=== PATIENT | female | born 1960 | race Caucasian/White ===

== ENCOUNTER 2016-12-30 11:44 | Emergency (ER) | payer OTHER ==
[~2016-12-30] VITALS: Ht 149.9 cm; Wt 76.0 kg
[~2016-12-30 11:44] MED LIST: ADVA500A INH; ALBU1.25 NEB; AMIT100T6 PO; ATEN1TAB74 PO; CLON2TAB PO; CYAN1000P IM; DEXI60CA3 PO; ESTR.3 PO; LANO0.2510 PO; LEVO50TA51 PO; MIRT45TA PO; QUET1TAB66 PO; ROPI2 PO; SERT-129 PO; TOPI100T OR; TOPI50TA4 PO
[2016-12-30 11:55] VITALS: BP 129/76; PULSE 112; RESP 22; O2SAT 97
[2016-12-30] MEDS ORDERED: SODIUM CHLOR 0.9% 1000 ML INJ 1,000 ML IV ONE (12:01)
[2016-12-30] MEDS ORDERED: DEXAMETHASONE SOD PHOS 20 MG/5 ML VIAL IV PUSH ONE (12:15)
[2016-12-30] MEDS ORDERED: PROCHLORPERAZINE INJ 10 MG/2 ML VIAL IVP ONE (12:15)
[2016-12-30] MEDS ORDERED: SODIUM CHLORIDE 0.9% FLUSH 5 ML FLUSH IVF PRN (12:15)
[2016-12-30] MEDS ORDERED: diphenhydrAMINE HCL 50 MG/ML VIAL IVP ONE (12:15)
[2016-12-30 12:44] LABS: AUTOMATED NEUTROPHIL # 5.8 TH/MM3 (1.8-7.7); BASOPHIL % 0.4 % (0.0-2.0); EOSINOPHIL # 0.2 TH/MM3 (0-0.4); EOSINOPHIL % 2.3 % (0.0-4.0); HEMATOCRIT 40.8 % (35.0-46.0); LYMPH % 31.7 % (9.0-44.0); LYMPHOCYTE # 3.1 TH/MM3 (1.0-4.8); MEAN CELL VOLUME 88.2 FL (80.0-100.0); MEAN CORPUSCULAR HEMOGLOBIN 29.7 PG (27.0-34.0); MEAN CORPUSCULAR HGB CONC 33.7 % (32.0-36.0); MONO % 7.2 % (0.0-8.0); NEUT % 58.4 % (16.0-70.0); PLATELET COUNT 180 TH/MM3 (150-450); RED BLOOD COUNT 4.63 MIL/MM3 (4.00-5.30); RED CELL DISTRIBUTION WIDTH 18.3 % (11.6-17.2); WHITE BLOOD COUNT 9.9 TH/MM3 (4.0-11.0)
[2016-12-30 12:45] LABS: HEMO FLAGS AUTO DIFF
--- NOTE | 2016-12-30 12:54 | PD ---
HPI Chief Complaint: GI Complaint Time Seen by Provider: 11:50 Travel History International Travel<30 days: No Contact w/Intl Traveler<30days: No Traveled to known affect area: No History of Present Illness HPI This is a 56 year-old woman who presents to the emergency department complaining of migraines. She has a history of migraines. Up until about a month ago she was only getting headaches once a month or less. Over the past month she's had more frequent headaches. She describes a migraines now to 4 times a week. She is a sumatriptan but is been using it regularly. She was on her way to see her doctor today when the headache came on and so she called an ambulance who brought her to the emergency department. She has photophobia, phonophobia, nausea and vomiting along with this. States she hasn't had headaches as bad except when she was first diagnosed with migraines. No other complaints. History Past Medical History Narrative Medical Migraine headaches COPD Anxiety Cervical spine arthritis COPD Hyperlipidemia Thyroid disease PNEUMOCCOCAL Vaccine (Year): 2 Menopausal: Yes : 1 Para: 1 Social History Alcohol Use: No Tobacco Use: No Allergies-Medications (Allergen,Severity, Reaction): Coded Allergies: Iodine (Verified Allergy, Intermediate, blisters, 12/30/16) Codeine (Verified Allergy, Mild, EMESIS, 12/30/16) Keflex (Verified Adverse Reaction, Intermediate, EMESIS, 12/30/16) Caffeine (Verified Adverse Reaction, Mild, HEADACHE, 12/30/16) Cephalosporins (Verified Adverse Reaction, Mild, EMESIS, 12/30/16) Morphine (Verified Adverse Reaction, Mild, ITCHING, 12/30/16) Abilify (Verified Adverse Reaction, Unknown, "TOO MANY SIDE EFFECTS", ) Uncoded Allergies: ASPERTAME (Adverse Reaction, Mild, EMESIS, 11/06/08) Reported Meds & Prescriptions Reported Meds & Active Scripts Active Reported Albuterol Neb (Albuterol Sulfate) Unknown Strength Neb 1 Ampule NEB Q6HR PRN Ventolin Hfa 18 GM Inh (Albuterol Sulfate) 90 Mcg/Act Aer 1-2 Puff INH Q4-6H PRN Symbicort Inh (Budesonide/Formoterol Fumarate) 160-4.5 Mcg/Act Aero 2 Puff INH DAILY Ferrous Sulfate 325 Mg Tab 325 Mg PO DAILY Folic Acid 800 Mcg Cap 800 Mcg PO DAILY Vitamin B-12 (Cyanocobalamin) 5,000 Mcg Tab 5,000 Mcg PO DAILY Vitamin D3 (Cholecalciferol) 5,000 Unit Tab 5,000 Units PO DAILY Vitamin C (Ascorbic Acid) 500 Mg Tab 500 Mg PO DAILY Omeprazole 20 Mg Tab 20 Mg PO BID Klonopin (Clonazepam) 2 Mg Tab 2 Mg PO HS Bentyl (Dicyclomine HCl) 20 Mg Tab 20 Mg PO TID PRN Tenormin (Atenolol) 50 Mg Tab 50 Mg PO DAILY Omeprazole 20 Mg Tab 20 Mg PO Q12HR Amitriptyline (Amitriptyline HCl) 50 Mg Tab 50 Mg PO HS Seroquel (Quetiapine Fumarate) 300 Mg Tab 300 Mg PO TID Requip (Ropinirole HCl) 2 Mg Tab 2 Mg PO HS PRN Topamax (Topiramate) 50 Mg Tab 50 Mg PO BID Cholestyramine 4 Gm/Dose Powd 4 Gm PO BID 1 level scoopful of powder (contains 4 grams of cholestyramine) Budesonide DR (Budesonide) 3 Mg Capdr 3 Mg PO DAILY Sumatriptan (Sumatriptan Succinate) 50 Mg Tab 50 Mg PO ONCE PRN If a satisfactory response has not been obtained at 2 hours, a second dose may be administered Review of Systems Except as stated in HPI: all other systems reviewed are Neg Physical Exam Narrative GENERAL: 56 year-old woman, nontoxic appearing, appears uncomfortable. SKIN: Warm and dry. HEAD: Atraumatic. Normocephalic. CARDIOVASCULAR: Regular rate and rhythm. No murmur appreciated. RESPIRATORY: No accessory muscle use. Clear to auscultation. Breath sounds equal bilaterally. GASTROINTESTINAL: Abdomen soft, non-tender, nondistended. Hepatic and splenic margins not palpable. MUSCULOSKELETAL: No obvious deformities. No clubbing. No cyanosis. No edema. NEUROLOGICAL: Awake and alert. No obvious cranial nerve deficits. Motor grossly within normal limits. Normal speech. PSYCHIATRIC: Appropriate mood and affect; insight and judgment normal. Data Data Last Documented VS Vital Signs Date Time Temp Pulse Resp B/P Pulse Ox O2 Delivery O2 Flow Rate FiO2 12/30/16 14:19 90 17 148/68 97 Room Air Orders Complete Blood Count With Diff (12/30/16 12:01) Comprehensive Metabolic Panel (12/30/16 12:01) Ecg Monitoring (12/30/16 12:01) Iv Access Insert/Monitor (12/30/16 12:01) Oximetry (12/30/16 12:01) Sodium Chloride 0.9% Flush (Ns Flush) (12/30/16 12:15) Prochlorperazine Inj (Compazine Inj) (12/30/16 12:15) Diphenhydramine Inj (Benadryl Inj) (12/30/16 12:15) Sodium Chlor 0.9% 1000 Ml Inj (Ns 1000 M (12/30/16 12:01) Dexamethasone Inj (Decadron Inj) (12/30/16 12:15) Metoclopramide Inj (Reglan Inj) (12/30/16 14:00) Ketorolac Inj (Toradol Inj) (12/30/16 14:00) Valproate Inj (Depacon Inj) (12/30/16 14:00) Labs Laboratory Tests Test 12/30/16 12:18 White Blood Count 9.9 TH/MM3 Red Blood Count 4.63 MIL/MM3 Hemoglobin 13.8 GM/DL Hematocrit 40.8 % Mean Corpuscular Volume 88.2 FL Mean Corpuscular Hemoglobin 29.7 PG Mean Corpuscular Hemoglobin 33.7 % Concent Red Cell Distribution Width 18.3 % Platelet Count 180 TH/MM3 Mean Platelet Volume 7.8 FL Neutrophils (%) (Auto) 58.4 % Lymphocytes (%) (Auto) 31.7 % Monocytes (%) (Auto) 7.2 % Eosinophils (%) (Auto) 2.3 % Basophils (%) (Auto) 0.4 % Neutrophils # (Auto) 5.8 TH/MM3 Lymphocytes # (Auto) 3.1 TH/MM3 Monocytes # (Auto) 0.7 TH/MM3 Eosinophils # (Auto) 0.2 TH/MM3 Basophils # (Auto) 0.0 TH/MM3 CBC Comment AUTO DIFF Differential Comment AUTO DIFF CONFIRMED Platelet Estimate NORMAL Platelet Morphology Comment NORMAL Ovalocytes 1+ Sodium Level 144 MEQ/L Potassium Level 3.5 MEQ/L Chloride Level 108 MEQ/L Carbon Dioxide Level 25.2 MEQ/L Anion Gap 11 MEQ/L Blood Urea Nitrogen 15 MG/DL Creatinine 0.91 MG/DL Estimat Glomerular Filtration 64 ML/MIN Rate Random Glucose 134 MG/DL Calcium Level 8.8 MG/DL Total Bilirubin 0.3 MG/DL Aspartate Amino Transf 10 U/L (AST/SGOT) Alanine Aminotransferase 20 U/L (ALT/SGPT) Alkaline Phosphatase 102 U/L Total Protein 6.5 GM/DL Albumin 3.7 GM/DL [facility] Medical Decision Making Medical Screen Exam Complete: Yes Emergency Medical Condition: Yes Interpretation(s) LABS: CBC unremarkable. CMP unremarkable. Differential Diagnosis Migraine headaches, ICH, cluster headaches, mass, seizures, other Narrative Course Medical decision making Is a 56-year-old woman is having worsening more frequent headaches, consistent with her previous migraines but hasn't been this bad in a while, on Topamax for migraine prophylaxis. We'll give migraine cocktail, fluids, reassess. 1:49 PM: Headache improved but still significant. Nausea resolved. We'll try second round of medicine. 3 O'clock p.m.: Patient improved. Still getting Depakote. Discussed options. She sees a neurologist in [facility]. Recommend close follow-up with him. We 'll refill her Imitrex. We'll give her Zofran as needed for nausea. Fioricet in addition if needed. Diagnosis Primary Impression: Migraine headache Qualified Code: G43.109 - Migraine with aura and without status migrainosus, not intractable Additional Instructions: Follow-up with your neurologist as scheduled. Continue Imitrex as prescribed. Use Zofran if needed for nausea or vomiting. Use Fioricet if needed in addition to Imitrex for headache. Return to the emergency department for any new or worsening symptoms. Med/Other Pt SpecificInfo: Prescription(s) given Scripts Ondansetron Odt (Zofran Odt)4 Mg Tab4 Mg SL Q8HR PRN (Nausea/Vomiting) #15 TAB Ref 0 Prov:Bobby Vázquez MD 12/30/16 Zapabqexeh-Wvkvyovhuiorj-Ertnhwns (Fioricet)50-300-40 Mg Cap1 Cap PO Q4H PRN ( HEADACHE) #15 CAP Ref 0 Prov:Bobby Vázquez MD 12/30/16 Sumatriptan 50 Mg Tab50 Mg PO ONCE PRN (MIGRAINE HEADACHE) #15 TAB Ref 0 If a satisfactory response has not been obtained at 2 hours, a second dose may be administered Prov:Bobby Vázquez MD 12/30/16 Disposition: 01 DISCHARGE HOME Condition: Stable Bobby Vzáquez MD Dec 30, 2016 12:54
[2016-12-30 13:13] LABS: ALKALINE PHOSPHATASE 102 U/L (45-117); ALT (GPT) 20 U/L (10-53); ANION GAP 11 MEQ/L (5-15); AST (GOT) 10 U/L (15-37); BICARBONATE 25.2 MEQ/L (21.0-32.0); BLOOD UREA NITROGEN 15 MG/DL (7-18); CHLORIDE 108 MEQ/L (98-107); GLOMERULAR FILTRATION RATE 64 ML/MIN (>89); POTASSIUM 3.5 MEQ/L (3.5-5.1); SODIUM (NA) 144 MEQ/L (136-145); TOTAL BILIRUBIN ADULT 0.3 MG/DL (0.2-1.0)
[2016-12-30 13:15] LABS: PLATELET ESTIMATE SMEAR NORMAL (NORMAL); PLATELET MORPHOLOGY NORMAL (NORMAL); SCAN/DIFF AUTO DIFF CONFIRMED
[2016-12-30 13:16] LABS: OVALOCYTES 1+ (NORMAL)
[2016-12-30] MEDS ORDERED: BUDE3CAP PO (13:34)
[2016-12-30] MEDS ORDERED: KLON2TAB PO (13:34)
[2016-12-30] MEDS ORDERED: SUMA50TA2 PO ×2 (13:34→15:13)
[2016-12-30] MEDS ORDERED: OMEP20TA PO ×2 (13:34)
[2016-12-30] MEDS ORDERED: CHOL50008 PO (13:34)
[2016-12-30] MEDS ORDERED: CYAN1TAB22 PO (13:34)
[2016-12-30] MEDS ORDERED: CHOL4POW3 PO (13:34)
[2016-12-30] MEDS ORDERED: ATEN1TAB74 PO (13:34)
[2016-12-30] MEDS ORDERED: AMIT50TA3 PO (13:34)
[2016-12-30] MEDS ORDERED: FOLI1CAP7 PO (13:34)
[2016-12-30] MEDS ORDERED: BENT20TA PO (13:34)
[2016-12-30] MEDS ORDERED: VENTAER INH (13:34)
[2016-12-30] MEDS ORDERED: ROPI2 PO (13:34)
[2016-12-30] MEDS ORDERED: VITA500T PO (13:34)
[2016-12-30] MEDS ORDERED: FERR325T PO (13:34)
[2016-12-30] MEDS ORDERED: SYMB160A INH (13:34)
[2016-12-30] MEDS ORDERED: SERO300T PO (13:34)
[2016-12-30] MEDS ORDERED: TOPA50TA7 PO (13:34)
[2016-12-30] MEDS ORDERED: ALBU0.08 NEB (13:34)
[2016-12-30] MEDS ORDERED: KETOROLAC TROMETHAMINE 30 MG/ML (IVP) VIAL IV PUSH ONE (14:00)
[2016-12-30] MEDS ORDERED: METOCLOPRAMIDE HCL 10 MG/2 ML VIAL IV PUSH ONE (14:00)
[2016-12-30] MEDS ORDERED: VALPROATE INJ 500 MG in SODIUM CHLORIDE 0.9% INJ 100 ML IV ONE (14:00)
[2016-12-30 14:19] VITALS: BP 148/68; PULSE 90; RESP 17; O2SAT 97
[2016-12-30] MEDS ORDERED: BUTA1CAP PO (15:13)
[2016-12-30] MEDS ORDERED: ZOFR4TAB3 SL (15:13)
[2016-12-30 15:48] VITALS: BP 161/79; PULSE 85; RESP 17; O2SAT 97
== END 2016-12-30 16:15 | disposition home or self-care (01) ==
LOC: NEPA 11:44
DX: G43.109 Migraine with aura, not intractable, without status migrainosus (principal); J44.9 Chronic obstructive pulmonary disease, unspecified; E78.5 Hyperlipidemia, unspecified; E07.9 Disorder of thyroid, unspecified
CPT/HCPCS: 80053; 85025; 96361; 96365; 96375; 99283; J0780; J1100; J1200; J1885; J2765; J7030

== ENCOUNTER 2017-09-26 05:17 | Inpatient (IN) | payer OTHER, MEDICARE ==
[2017-09-26] VITALS (8 sets, daily range): BP systolic 108–168; BP diastolic 61–77; PULSE 70–85; RESP 16–18; TEMP 97.3–98; O2SAT 94–100
[~2017-09-26] VITALS: Ht 149.9 cm; Wt 75.1 kg
[~2017-09-26 05:17] MED LIST changes: -ADVA500A INH; +ALBU0.08 NEB; -ALBU1.25 NEB; -AMIT100T6 PO; +AMIT50TA3 PO; +BENT20TA PO; +BUDE3CAP PO; +BUTA1CAP PO; +CHOL4POW3 PO; +CHOL50008 PO; -CLON2TAB PO; -CYAN1000P IM; +CYAN1TAB22 PO; -DEXI60CA3 PO; -ESTR.3 PO; +FERR325T PO; +FOLI1CAP7 PO; +KLON2TAB PO; -LANO0.2510 PO; -LEVO50TA51 PO; -MIRT45TA PO; +OMEP20TA93 PO; -QUET1TAB66 PO; +SERO300T PO; -SERT-129 PO; +SUMA50TA2 PO; +SYMB160A INH; +TOPA50TA7 PO; -TOPI100T OR; -TOPI50TA4 PO; +VENTAER INH; +VITA500T PO; +ZOFR4TAB3 SL
[2017-09-26] MEDS ORDERED: SODIUM CHLOR 0.9% 1000 ML INJ 1,000 ML IV ONE (05:24)
[2017-09-26] MEDS ORDERED: SODIUM CHLORIDE 0.9% FLUSH 10 ML FLUSH IVF PRN (05:30)
--- NOTE | 2017-09-26 05:36 | PD ---
HPI Chief Complaint: OD/ Ingestion Time Seen by Provider: 05:24 Travel History International Travel<30 days: No Contact w/Intl Traveler<30days: No Traveled to known affect area: No History of Present Illness HPI 57 y/o female presents by ambulance with taking a handful of Klonopin at a unknown time. She was found at home drowsy but awake and with stable vitals. She is under [place] act for suicidal intentions. 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 Patient tells me she took a handful but can't say when. Prescription pill bottle that came with the patient is Klonopin 2 mg prescribed to take a half a tab twice a day and was filled on September 07 and if took like she should there are 12 pills missing. PFSH Past Medical History Arthritis: Yes (SPIN C4 C5) Autoimmune Disease: No Blood Disorders: No Anxiety: Yes Depression: Yes Heart Rhythm Problems: Yes Cancer: No Cardiovascular Problems: No High Cholesterol: Yes Chemotherapy: No Chest Pain: No Congestive Heart Failure: No COPD: Yes Cerebrovascular Accident: No Diabetes: No Diminished Hearing: No Endocrine: No Gastrointestinal Disorders: Yes GERD: Yes Glaucoma: No Genitourinary: Yes Headaches: Yes Hepatitis: No Hiatal Hernia: No Hypertension: No Immune Disorder: No Kidney Stones: No Musculoskeletal: No Psychiatric: Yes Reproductive: No Respiratory: Yes (COPD) Immunizations Current: Yes Migraines: Yes Myocardial Infarction: No Radiation Therapy: No Renal Failure: No Seizures: No Sickle Cell Disease: No Sleep Apnea: No Thyroid Disease: Yes Ulcer: No PNEUMOCCOCAL Vaccine (Year): 2 Menopausal: Yes : 1 Para: 1 Past Surgical History Abdominal Surgery: No AICD: No Appendectomy: No Arteriovenous Shunt: No Cardiac Surgery: Yes (ABLATION) Cholecystectomy: Yes Ear Surgery: No Endocrine Surgery: No Eye Surgery: No Genitourinary Surgery: No Gynecologic Surgery: No Insulin Pump: No Joint Replacement: No Oral Surgery: No Pacemaker: No Thoracic Surgery: No Other Surgery: Yes (BREAST IMPLANTS, TUMMY TUCK) Social History Alcohol Use: No Tobacco Use: No Substance Use: No Allergies-Medications (Allergen,Severity, Reaction): Coded Allergies: iodine (Unverified Allergy, Intermediate, blisters, 06/09/17) potassium iodide (Unverified Allergy, Intermediate, blisters, 06/09/17) povidone-iodine (Unverified Allergy, Intermediate, blisters, 06/09/17) sodium iodide (Unverified Allergy, Intermediate, blisters, 06/09/17) sodium iodide (Unverified Allergy, Intermediate, blisters, 06/09/17) codeine (Unverified Allergy, Mild, EMESIS, 06/09/17) cephalexin (Unverified Adverse Reaction, Intermediate, EMESIS, 06/09/17) caffeine (Unverified Adverse Reaction, Mild, HEADACHE, 06/09/17) cefepime (Unverified Adverse Reaction, Mild, EMESIS, 06/09/17) ceftaroline fosamil (Unverified Adverse Reaction, Mild, EMESIS, 06/09/17) morphine (Unverified Adverse Reaction, Mild, ITCHING, 06/09/17) aripiprazole (Unverified Adverse Reaction, Unknown, "TOO MANY SIDE EFFECTS ", 06/09/17) Uncoded Allergies: ASPERTAME (Adverse Reaction, Mild, EMESIS, 11/06/08) Reported Meds & Prescriptions Reported Meds & Active Scripts Active Sumatriptan (Sumatriptan Succinate) 50 Mg Tab 50 Mg PO ONCE PRN If a satisfactory response has not been obtained at 2 hours, a second dose may be administered Reported Levothyroxine (Levothyroxine Sodium) 25 Mcg Tab 25 Mcg PO DAILY Sertraline (Sertraline HCl) 100 Mg Tab 150 Mg PO DAILY Dicyclomine (Dicyclomine HCl) 20 Mg Tab 20 Mg PO TID Mobic (Meloxicam) 7.5 Mg Tab 7.5 Mg PO DAILY Ventolin Hfa 18 GM Inh (Albuterol Sulfate) 90 Mcg/Act Aer 1-2 Puff INH Q4-6H PRN Symbicort Inh (Budesonide/Formoterol Fumarate) 160-4.5 Mcg/Act Aero 2 Puff INH DAILY Folic Acid 800 Mcg Cap 800 Mcg PO DAILY Vitamin B-12 (Cyanocobalamin) 5,000 Mcg Tab 5,000 Mcg PO DAILY Omeprazole 20 Mg Tab 40 Mg PO BID Klonopin (Clonazepam) 2 Mg Tab 2 Mg PO HS Tenormin (Atenolol) 50 Mg Tab 50 Mg PO DAILY Amitriptyline (Amitriptyline HCl) 50 Mg Tab 50 Mg PO HS Seroquel (Quetiapine Fumarate) 300 Mg Tab 300 Mg PO TID Requip (Ropinirole HCl) 2 Mg Tab 2 Mg PO HS PRN Topamax (Topiramate) 50 Mg Tab 50 Mg PO BID Cholestyramine 4 Gm/Dose Powd 4 Gm PO BID 1 level scoopful of powder (contains 4 grams of cholestyramine) Review of Systems ROS Limitations: Poor Historian Physical Exam Exam Limitations: Poor Historian Narrative GENERAL: Well-nourished, well-developed patient. SKIN: Warm and dry. HEAD: Normocephalic and atraumatic. EYES: No injection or drainage. ENT: No nasal drainage noted. NECK: Supple, trachea midline. CARDIOVASCULAR: Regular rate and rhythm RESPIRATORY: Breath sounds equal bilaterally. No accessory muscle use. GASTROINTESTINAL: Abdomen soft, non-tender, nondistended. EXTREMITIES: No edema. NEUROLOGICAL: Drowsy but opens eyes to voice, moves all extremities, slurred speech Data Data Last Documented VS Vital Signs Date Time Temp Pulse Resp B/P (MAP) Pulse Ox O2 Delivery O2 Flow Rate FiO2 09/26/17 14:00 97.9 79 17 137/66 (89) 98 Room Air Orders Orders Electrocardiogram (09/26/17 05:24) Complete Blood Count With Diff (09/26/17 05:24) Comprehensive Metabolic Panel (09/26/17 05:24) Prothrombin Time / Inr (Pt) (09/26/17 05:24) Act Partial Throm Time (Ptt) (09/26/17 05:24) Iv Access Insert/Monitor (09/26/17 05:24) Ecg Monitoring (09/26/17 05:24) Oximetry (09/26/17 05:24) Psych Screen (09/26/17 05:24) Sodium Chloride 0.9% Flush (Ns Flush) (09/26/17 05:30) Sodium Chlor 0.9% 1000 Ml Inj (Ns 1000 M (09/26/17 05:24) Call Poison Control (09/26/17 05:24) Drug Screen, Random Urine (09/26/17 05:24) Alcohol (Ethanol) (09/26/17 05:24) Salicylates (Aspirin) (09/26/17 05:24) Tylenol (Acetaminophen) (09/26/17 05:24) Ct Brain W/O Iv Contrast(Rout) (09/26/17 09:01) Diet Regular Basic (09/26/17 Lunch) Diet Regular Basic (09/26/17 Dinner) Admit Order (Ed Use Only) (09/26/17 21:49) Admit To Inpatient Psych (09/26/17 ) Vital Signs (Adult) LASHAWN.Q12H.E (09/26/17 21:49) Activity Oob Ad Joleen (09/26/17 21:49) Level Of Observation (Psych) (09/26/17 21:49) Diet Regular Basic (09/27/17 Breakfast) Basic Metabolic Panel (Bmp) (09/27/17 06:00) Thyroid Stimulating Hormone (09/27/17 06:00) Free Thyroxine (T4) (09/27/17 06:00) Lipid Profile (09/27/17 06:00) Hemoglobin (Hgb) A1c (09/27/17 06:00) Consult Hospitalist (09/26/17 ) Electrocardiogram (09/27/17 ) Labs Laboratory Tests Test 09/26/17 05:30 09/26/17 06:15 White Blood Count 10.0 TH/MM3 Red Blood Count 4.35 MIL/MM3 Hemoglobin 13.3 GM/DL Hematocrit 39.7 % Mean Corpuscular Volume 91.2 FL Mean Corpuscular Hemoglobin 30.6 PG Mean Corpuscular Hemoglobin Concent 33.6 % Red Cell Distribution Width 14.0 % Platelet Count 207 TH/MM3 Mean Platelet Volume 7.8 FL Neutrophils (%) (Auto) 62.6 % Lymphocytes (%) (Auto) 27.0 % Monocytes (%) (Auto) 7.4 % Eosinophils (%) (Auto) 2.4 % Basophils (%) (Auto) 0.6 % Neutrophils # (Auto) 6.3 TH/MM3 Lymphocytes # (Auto) 2.7 TH/MM3 Monocytes # (Auto) 0.7 TH/MM3 Eosinophils # (Auto) 0.2 TH/MM3 Basophils # (Auto) 0.1 TH/MM3 CBC Comment DIFF FINAL Differential Comment Prothrombin Time 10.5 SEC Prothromb Time International Ratio 1.0 RATIO Activated Partial Thromboplast Time 23.5 SEC Blood Urea Nitrogen 13 MG/DL Creatinine 1.14 MG/DL Random Glucose 98 MG/DL Total Protein 7.0 GM/DL Albumin 3.7 GM/DL Calcium Level 9.0 MG/DL Alkaline Phosphatase 108 U/L Aspartate Amino Transf (AST/SGOT) 28 U/L Alanine Aminotransferase (ALT/SGPT) 23 U/L Total Bilirubin 0.2 MG/DL Sodium Level 141 MEQ/L Potassium Level 3.2 MEQ/L Chloride Level 108 MEQ/L Carbon Dioxide Level 23.3 MEQ/L Anion Gap 10 MEQ/L Estimat Glomerular Filtration Rate 49 ML/MIN Salicylates Level LESS THAN 1.7 MG/DL Acetaminophen Level LESS THAN 2.0 MCG/ML Ethyl Alcohol Level LESS THAN 3 MG/DL Urine Opiates Screen NEG Urine Barbiturates Screen NEG Urine Amphetamines Screen NEG Urine Benzodiazepines Screen POS Urine Cocaine Screen NEG Urine Cannabinoids Screen NEG MDM Medical Decision Making Medical Screen Exam Complete: Yes Emergency Medical Condition: Yes Medical Record Reviewed: Yes (past history confirmed) Interpretation(s) EKG shows NSR, no ST elevation or depression, and no arrhythmias. No significant T-wave inversions. Limited by wandering baseline Differential Diagnosis Ingestion, coingestion, electrolyte abnormality, depression Narrative Course Will check lab work and dose with IV fluids and monitor respiratory status Physician Communication Physician Communication oncoming physician to follow workup and reeval given amount of ingestion My Sparks MD Sep 26, 2017 05:36
[2017-09-26] MEDS ORDERED: DICY20TA10 PO (06:09)
[2017-09-26] MEDS ORDERED: LAMO25CH CHEW (06:09)
[2017-09-26] MEDS ORDERED: MOBI7.5T PO (06:09)
[2017-09-26] MEDS ORDERED: LEVO25TA4 PO (06:09)
[2017-09-26] MEDS ORDERED: SERT-129 PO (06:09)
[2017-09-26 06:16] LABS: AUTOMATED NEUTROPHIL # 6.3 TH/MM3 (1.8-7.7); BASOPHIL # 0.1 TH/MM3 (0-0.2); BASOPHIL % 0.6 % (0.0-2.0); EOSINOPHIL # 0.2 TH/MM3 (0-0.4); EOSINOPHIL % 2.4 % (0.0-4.0); HEMATOCRIT 39.7 % (35.0-46.0); HEMO FLAGS DIFF FINAL; LYMPHOCYTE # 2.7 TH/MM3 (1.0-4.8); MEAN CELL VOLUME 91.2 FL (80.0-100.0); MEAN CORPUSCULAR HEMOGLOBIN 30.6 PG (27.0-34.0); MEAN CORPUSCULAR HGB CONC 33.6 % (32.0-36.0); MONO % 7.4 % (0.0-8.0); NEUT % 62.6 % (16.0-70.0); PLATELET COUNT 207 TH/MM3 (150-450); RED BLOOD COUNT 4.35 MIL/MM3 (4.00-5.30)
[2017-09-26 06:28] LABS: APTT (PATIENT) 23.5 SEC (24.3-30.1); PROTHROMBIN TIME - PATIENT 10.5 SEC (9.8-11.6)
[2017-09-26 06:31] LABS: ALKALINE PHOSPHATASE 108 U/L (45-117); TOTAL BILIRUBIN ADULT 0.2 MG/DL (0.2-1.0)
[2017-09-26 06:32] LABS: ACETAMINOPHEN LESS THAN 2.0 MCG/ML (10.0-30.0); ALCOHOL LESS THAN 3 MG/DL (0-5); ALT (GPT) 23 U/L (10-53); ANION GAP 10 MEQ/L (5-15); AST (GOT) 28 U/L (15-37); BICARBONATE 23.3 MEQ/L (21.0-32.0); BLOOD UREA NITROGEN 13 MG/DL (7-18); CHLORIDE 108 MEQ/L (98-107); GLOMERULAR FILTRATION RATE 49 ML/MIN (>89); POTASSIUM 3.2 MEQ/L (3.5-5.1); SODIUM (NA) 141 MEQ/L (136-145)
--- NOTE | 2017-09-26 09:30 | RADRPT ---
EXAM DATE/TIME: 09/26/2017 09:14 [facility] COMPARISON: No previous studies available for comparison. INDICATIONS : Altered mental status. RADIATION DOSE: 35.33 CTDIvol (mGy) MEDICAL HISTORY : Cardiovascular disease. Chronic obstructive pulmonary disease. SURGICAL HISTORY : None. ENCOUNTER: Initial ACUITY: 1 day PAIN SCALE: 0/10 LOCATION: cranial TECHNIQUE: Multiple contiguous axial images were obtained of the head. Using automated exposure control and adj ustment of the mA and/or kV according to patient size, radiation dose was kept as low as reasonably a chievable to obtain optimal diagnostic quality images. DICOM format image data is available electro nically for review and comparison. FINDINGS: CEREBRUM: The ventricles are normal for age. No evidence of midline shift, mass lesion, hemorrhage or acute in farction. No extra-axial fluid collections are seen. POSTERIOR FOSSA: The cerebellum and brainstem are intact. The 4th ventricle is midline. The cerebellopontine angle i s unremarkable. EXTRACRANIAL: The visualized portion of the orbits is intact. SKULL: The calvaria is intact. No evidence of skull fracture. CONCLUSION: No acute intracranial disease. Carlton Martin MD on September 26, 2017 at 9:27 Board Certified Radiologist. This report was verified electronically.
--- NOTE | 2017-09-26 10:06 | PD ---
Physical Exam Date Seen by Provider: Sep 26, 2017 Time Seen by Provider: 07:00 Narrative Patient signed out to me at 7AM by Dr. Sparks, here for Klonopin overdose, suspected to be intentional, [place] acted, awaiting medical clearance. On my reevaluation at 8 AM, patient states that she has been falling a lot, is not sure whether she hit her head, has been having increased disorientation, is not sure what date it is, and a CAT scan was ordered for further evaluation. It is negative. Laboratory Tests Test 09/26/17 05:30 09/26/17 06:15 Activated Partial Thromboplast Time 23.5 SEC (24.3-30.1) Creatinine 1.14 MG/DL (0.50-1.00) Potassium Level 3.2 MEQ/L (3.5-5.1) Chloride Level 108 MEQ/L (98-107) Estimat Glomerular Filtration Rate 49 ML/MIN (>89) Acetaminophen Level LESS THAN 2.0 MCG/ML Urine Benzodiazepines Screen POS (NEG) Last [address] 09/26/17900 Signed Impressions: Service Date/Time: Tuesday, September 26, 2017 09:14 - CONCLUSION: No acute intracranial disease. Carlton Martin MD After period of observation in the ER, patient is awake, with no signs of decompensation, metabolic panel was fairly unremarkable. Her urine is positive for benzodiazepine but was not positive for other coingestions. At this point, my plan would be to medically clear for psychiatric evaluation. She has been [place] acted. Data Data Last Documented VS Vital Signs Date Time Temp Pulse Resp B/P (MAP) Pulse Ox O2 Delivery O2 Flow Rate FiO2 09/26/17 06:12 75 16 120/61 (80) 100 Room Air 09/26/17 05:24 98.0 Orders Orders Electrocardiogram (09/26/17 05:24) Complete Blood Count With Diff (09/26/17 05:24) Comprehensive Metabolic Panel (09/26/17 05:24) Prothrombin Time / Inr (Pt) (09/26/17 05:24) Act Partial Throm Time (Ptt) (09/26/17 05:24) Iv Access Insert/Monitor (09/26/17 05:24) Ecg Monitoring (09/26/17 05:24) Oximetry (09/26/17 05:24) Psych Screen (09/26/17 05:24) Sodium Chloride 0.9% Flush (Ns Flush) (09/26/17 05:30) Sodium Chlor 0.9% 1000 Ml Inj (Ns 1000 M (09/26/17 05:24) Call Poison Control (09/26/17 05:24) Drug Screen, Random Urine (09/26/17 05:24) Alcohol (Ethanol) (09/26/17 05:24) Salicylates (Aspirin) (09/26/17 05:24) Tylenol (Acetaminophen) (09/26/17 05:24) Ct Brain W/O Iv Contrast(Rout) (09/26/17 09:01) Labs Laboratory Tests Test 09/26/17 05:30 09/26/17 06:15 White Blood Count 10.0 TH/MM3 Red Blood Count 4.35 MIL/MM3 Hemoglobin 13.3 GM/DL Hematocrit 39.7 % Mean Corpuscular Volume 91.2 FL Mean Corpuscular Hemoglobin 30.6 PG Mean Corpuscular Hemoglobin Concent 33.6 % Red Cell Distribution Width 14.0 % Platelet Count 207 TH/MM3 Mean Platelet Volume 7.8 FL Neutrophils (%) (Auto) 62.6 % Lymphocytes (%) (Auto) 27.0 % Monocytes (%) (Auto) 7.4 % Eosinophils (%) (Auto) 2.4 % Basophils (%) (Auto) 0.6 % Neutrophils # (Auto) 6.3 TH/MM3 Lymphocytes # (Auto) 2.7 TH/MM3 Monocytes # (Auto) 0.7 TH/MM3 Eosinophils # (Auto) 0.2 TH/MM3 Basophils # (Auto) 0.1 TH/MM3 CBC Comment DIFF FINAL Differential Comment Prothrombin Time 10.5 SEC Prothromb Time International Ratio 1.0 RATIO Activated Partial Thromboplast Time 23.5 SEC Blood Urea Nitrogen 13 MG/DL Creatinine 1.14 MG/DL Random Glucose 98 MG/DL Total Protein 7.0 GM/DL Albumin 3.7 GM/DL Calcium Level 9.0 MG/DL Alkaline Phosphatase 108 U/L Aspartate Amino Transf (AST/SGOT) 28 U/L Alanine Aminotransferase (ALT/SGPT) 23 U/L Total Bilirubin 0.2 MG/DL Sodium Level 141 MEQ/L Potassium Level 3.2 MEQ/L Chloride Level 108 MEQ/L Carbon Dioxide Level 23.3 MEQ/L Anion Gap 10 MEQ/L Estimat Glomerular Filtration Rate 49 ML/MIN Acetaminophen Level LESS THAN 2.0 MCG/ML Ethyl Alcohol Level LESS THAN 3 MG/DL Urine Opiates Screen NEG Urine Barbiturates Screen NEG Urine Amphetamines Screen NEG Urine Benzodiazepines Screen POS Urine Cocaine Screen NEG Urine Cannabinoids Screen NEG MDM Medical Record Reviewed: Yes Supervised Visit with ALISE: No Diagnosis Primary Impression: Medication overdose Disposition: 65 DISC TO PSYCH CARE FACILITY Condition: Stable Niels Nevarez MD Sep 26, 2017 10:06
[2017-09-26] MEDS ORDERED: diphenhydrAMINE HCL 50 MG/ML VIAL IM PRN (22:15)
[2017-09-26] MEDS ORDERED: diphenhydrAMINE HCL 50 MG CAP PO PRN (22:15)
[2017-09-26] MEDS ORDERED: BENZTROPINE MESYLATE 2 MG/2 ML VIAL IM PRN (22:15)
[2017-09-26] MEDS ORDERED: hydrOXYzine HCL 50 MG TAB PO PRN (22:15)
[2017-09-26] MEDS ORDERED: traZODone HCL 50 MG TAB PO PRN (22:15)
[2017-09-26] MEDS ORDERED: diphenhydrAMINE HCL 50 MG/ML VIAL - HS PRN IM (22:15)
[2017-09-26] MEDS ORDERED: MAGNESIUM HYDROXIDE SUSP 30 ML CUP PO PRN (22:15)
[2017-09-26] MEDS ORDERED: LORazepam 2 MG/ML VIAL IM PRN (22:15)
[2017-09-26] MEDS ORDERED: ALUMINUM/MAGNESIUM/SIMETH 30 ML CUP PO PRN (22:15)
[2017-09-26] MEDS ORDERED: ACETAMINOPHEN 325 MG TAB PO PRN (22:15)
[2017-09-26] MEDS ORDERED: diphenhydrAMINE HCL 50 MG CAP - HS PRN PO (22:15)
[2017-09-26] MEDS ORDERED: BENZTROPINE MESYLATE 1 MG TAB PO PRN (22:15)
[2017-09-26] MEDS ORDERED: ALBUTEROL SULFATE 90 MCG/ACT HFA 18 GM INHALER INH PRN (22:30)
[2017-09-26] MEDS ORDERED: SUMAtriptan SUCCINATE 50 MG TAB PO PRN (22:30)
[2017-09-26] MEDS: LORazepam 1 MG TAB PO PRN (23:37)
[2017-09-27 06:04] VITALS: BP 146/65; PULSE 83; RESP 17; TEMP 99.6; O2SAT 99
[2017-09-27] MEDS: CYANOCOBALAMIN 1,000 MCG TAB PO SCH (08:41)
[2017-09-27] MEDS ORDERED: ATENOLOL 50 MG TAB PO SCH (09:00)
[2017-09-27] MEDS: NICOTINE 21 MG/24 HR PATCH T-DERMAL SCH (09:00)
[2017-09-27] MEDS ORDERED: TOPIRAMATE 25 MG TAB PO SCH (09:00)
[2017-09-27] MEDS ORDERED: FOLIC ACID 1 MG TAB PO SCH (09:00)
[2017-09-27] MEDS ORDERED: PANTOPRAZOLE SOD 40 MG DELAYED RELEASE TAB PO SCH (09:00)
[2017-09-27] MEDS ORDERED: DICYCLOMINE HCL 20 MG TAB PO SCH (09:00)
[2017-09-27] MEDS ORDERED: BUDESONIDE-FORMOTEROL 160/4.5 MCG INHALER INH SCH (09:00)
[2017-09-27] MEDS ORDERED: CHOLESTYRAMINE 4 GM PACKET PO SCH (10:00)
[2017-09-27] MEDS ORDERED: ALBUTEROL SULFATE 90 MCG/ACT HFA 8 GM INHALER INH PRN (11:30)
--- NOTE | 2017-09-27 11:54 | PD.PN.STU ---
Subjective Remarks Patient complaining of abdominal pain, diarrhea, and occasional blood in stool which she describes as a Crohn's exacerbation. Would like dicyclomine and cholestyramine which she reportedly takes at home. Also c/o dry mouth due to antidepressants and requests chapstick. Also states some cough and nasal congestion for the past 3-4 days with no fever or sore throat. One episode of post-tussive vomiting 2 days ago. ROS negative for chest pain, SOB, n/v, fever, sore throat. Past Medical History Crohn's disease COPD Hyperlipidemia-familial Cardiac arrhythmia-SVTs Hypothyroid GERD CKD Migraines MDD, SADAF Multiple drug allergies as listed in chart Past Surgical History: Cholecystectomy Abdominal plasty Breast implantation w/ subsequent removal Family Medical History: Reported family history of early hyperlipidemia, SVTs, psychiatric illness. Mother of liver CA. Father alive at 101 yo. Sister with breast CA. Social History: No current substance use Smoked 1/2 ppd for 10 yrs, quit 25 yrs ago Objective Vitals Vital Signs Date Time Temp Pulse Resp B/P (MAP) Pulse Ox O2 Delivery O2 Flow Rate FiO2 09/27/17 06:04 99.6 83 17 146/65 (92) 99 09/26/17 22:20 97.3 79 18 168/77 (107) 97 09/26/17 22:14 85 18 145/70 (95) 96 09/26/17 22:07 09/26/17 14:00 97.9 79 17 137/66 (89) 98 Room Air I/O 09/26/17 09/26/17 09/26/17 09/27/17 09/27/17 09/27/17 07:00 15:00 23:00 07:00 15:00 23:00 Intake Total 1000 ml Balance 1000 ml Intake IV Total 1000 ml Result Diagram: 09/26/17 0530 09/26/17 0530 Other Results Laboratory Tests Test 09/26/17 05:30 09/26/17 06:15 White Blood Count 10.0 TH/MM3 Red Blood Count 4.35 MIL/MM3 Hemoglobin 13.3 GM/DL Hematocrit 39.7 % Mean Corpuscular Volume 91.2 FL Mean Corpuscular Hemoglobin 30.6 PG Mean Corpuscular Hemoglobin Concent 33.6 % Red Cell Distribution Width 14.0 % Platelet Count 207 TH/MM3 Mean Platelet Volume 7.8 FL Neutrophils (%) (Auto) 62.6 % Lymphocytes (%) (Auto) 27.0 % Monocytes (%) (Auto) 7.4 % Eosinophils (%) (Auto) 2.4 % Basophils (%) (Auto) 0.6 % Neutrophils # (Auto) 6.3 TH/MM3 Lymphocytes # (Auto) 2.7 TH/MM3 Monocytes # (Auto) 0.7 TH/MM3 Eosinophils # (Auto) 0.2 TH/MM3 Basophils # (Auto) 0.1 TH/MM3 CBC Comment DIFF FINAL Differential Comment Prothrombin Time 10.5 SEC Prothromb Time International Ratio 1.0 RATIO Activated Partial Thromboplast Time 23.5 SEC Blood Urea Nitrogen 13 MG/DL Creatinine 1.14 MG/DL Random Glucose 98 MG/DL Total Protein 7.0 GM/DL Albumin 3.7 GM/DL Calcium Level 9.0 MG/DL Alkaline Phosphatase 108 U/L Aspartate Amino Transf (AST/SGOT) 28 U/L Alanine Aminotransferase (ALT/SGPT) 23 U/L Total Bilirubin 0.2 MG/DL Sodium Level 141 MEQ/L Potassium Level 3.2 MEQ/L Chloride Level 108 MEQ/L Carbon Dioxide Level 23.3 MEQ/L Anion Gap 10 MEQ/L Estimat Glomerular Filtration Rate 49 ML/MIN Salicylates Level LESS THAN 1.7 MG/DL Acetaminophen Level LESS THAN 2.0 MCG/ML Ethyl Alcohol Level LESS THAN 3 MG/DL Urine Opiates Screen NEG Urine Barbiturates Screen NEG Urine Amphetamines Screen NEG Urine Benzodiazepines Screen POS Urine Cocaine Screen NEG Urine Cannabinoids Screen NEG Objective Remarks GENERAL: Patient awake, alert, walking around in room. SKIN: Warm and dry. HEAD: Atraumatic. Normocephalic. EYES: Pupils equal and round. No scleral icterus. No injection or drainage. ENT: No nasal bleeding or discharge. Mucous membranes pink but dry. NECK: Trachea midline. No JVD. CARDIOVASCULAR: Regular rate and rhythm. Normal S1, S2. RESPIRATORY: No accessory muscle use. Clear to auscultation. Breath sounds equal bilaterally. GASTROINTESTINAL: Abdomen soft, non-tender, nondistended. Hepatic and splenic margins not palpable. MUSCULOSKELETAL: Extremities without clubbing, cyanosis, or edema. No obvious deformities. NEUROLOGICAL: Awake and alert. No obvious cranial nerve deficits. Motor grossly within normal limits. Normal speech. Medications and IVs Current Medications Sodium Chloride (NS Flush) 2 ml UNSCH PRN IVF FLUSH AFTER USING IV ACCESS; Start 09/26/17 at 05:30 Sodium Chloride 1,000 ml @ 1,000 mls/hr Q1H ONCE IV Last administered on 05:35; Start 09/26/17 at 05:24; Stop 09/26/17 at 06:23; Status DC Lorazepam (Ativan) 1 mg Q6H PRN PO MODERATE TO SEVERE ANXIETY Last administered on 09/26/17 23:37; Start 09/26/17 at 22:15 Lorazepam (Ativan Inj) 1 mg Q6H PRN IM MODERATE TO SEVERE ANXIETY; Start at 22:15 Hydroxyzine HCl (Atarax) 50 mg Q6H PRN PO ANXIETY; Start 09/26/17 at 22:15 Diphenhydramine HCl (Benadryl) 50 mg Q6H PRN PO MILD ANXIETY, EPS; Start at 22:15 Diphenhydramine HCl (Benadryl Inj) 50 mg Q6H PRN IM MILD ANXIETY, EPS; Start 09/26/17 at 22:15 Benztropine Mesylate (Cogentin) 1 mg Q12H PRN PO EXTRA PYRAMIDAL SYMPTOMS; Start 09/26/17 at 22:15 Benztropine Mesylate (Cogentin Inj) 1 mg Q12H PRN IM EXTRA PYRAMIDAL SYMPTOMS; Start 09/26/17 at 22:15 Diphenhydramine HCl (Benadryl) 50 mg HS PRN PO INSOMNIA; Start 09/26/17 at 22: 15 Diphenhydramine HCl (Benadryl Inj) 50 mg HS PRN IM INSOMNIA; Start 09/26/17 at 22:15 Trazodone HCl (Desyrel) 50 mg HS PRN PO INSOMNIA; Start 09/26/17 at 22:15; Status Future Hold Acetaminophen (Tylenol) 650 mg Q4H PRN PO Pain 1-5 or Temp >101F; Start at 22:15 Magnesium Hydroxide (Milk Of Magnesia Liq) 30 ml DAILY PRN PO CONSTIPATION; Start 09/26/17 at 22:15 Al Hydrox/Mg Hydrox/Simethicone (Mag-Al Plus Susp Liq) 30 ml Q6H PRN PO DYSPEPSIA; Start 09/26/17 at 22:15 Nicotine (Habitrol 21 Mg Patch.24 Hr) 1 patch DAILY T-DERMAL ; Start 09/27/17 at 09:00 Miscellaneous Information 1 HS T-DERMAL ; Start 09/27/17 at 21:00 Cholestyramine Resin (Questran 4 Gm Pkt) 4 gm Q12H PO Last administered on 09/27 10:51; Start 09/27/17 at 10:00 Topiramate (Topamax) 50 mg BID PO Last administered on 09/27/17 08:41; Start 09/27/17 at 09:00 Ropinirole HCl (Requip) 2 mg HS PRN PO RESTLESS LEGS Last administered on 04:35; Start 09/26/17 at 22:15 Atenolol (Tenormin) 50 mg DAILY PO Last administered on 09/27/17 08:41; Start 09/27/17 at 09:00 Clonazepam (KlonoPIN) 2 mg HS PO ; Start 09/27/17 at 21:00 Pantoprazole Sodium (Protonix) 40 mg BIDPC PO Last administered on 09/27/17 08 :41; Start 09/27/17 at 09:00 Cyanocobalamin (Vitamin B12) 5,000 mcg DAILY PO Last administered on 09/27/17 08:41; Start 09/27/17 at 09:00 Folic Acid (Folate) 1 mg DAILY PO Last administered on 09/27/17 08:41; Start 09/27/17 at 09:00 Budesonide/ Formoterol Fumarate (Symbicort 160-4.5 Mcg Inh) 2 puff DAILY INH Last administered on 09/27/17 10:51; Start 09/27/17 at 09:00 Albuterol Sulfate (Ventolin Hfa Inh) 1 puff Q6H PRN INH SHORTNESS OF BREATH; Start 09/26/17 at 22:30 Sumatriptan Succinate (Imitrex) 50 mg DAILY PRN PO MIGRAINE HEADACHE Last administered on 09/27/17 04:35; Start 09/26/17 at 22:30 Dicyclomine HCl (Bentyl) 20 mg TID PO Last administered on 09/27/17 10:51; Start 09/27/17 at 09:00 Albuterol Sulfate (Proair Hfa Inh) 1 puff Q4HR PRN INH SHORTNESS OF BREATH; Start 09/27/17 at 11:30; Status UNV Atenolol (Tenormin) 50 mg DAILY PO ; Start 09/28/17 at 09:00; Status UNV Budesonide/ Formoterol Fumarate (Symbicort 160-4.5 Mcg Inh) 2 puff DAILY INH ; Start 09/28/17 at 09:00; Status UNV Cholestyramine Resin (Questran 4 Gm Pkt) 4 gm BID PO ; Start 09/27/17 at 21:00; Status UNV Dicyclomine HCl (Bentyl) 20 mg TID PO ; Start 09/27/17 at 13:00; Status UNV Folic Acid (Folate) 0.8 mg DAILY PO ; Start 09/28/17 at 09:00; Status UNV Levothyroxine Sodium (Synthroid) 25 mcg DAILY PO ; Start 09/28/17 at 09:00; Status UNV Topiramate (Topamax) 50 mg BID PO ; Start 09/27/17 at 21:00; Status UNV Non-Formulary Medication 40 mg BID PO ; Start 09/27/17 at 21:00; Status UNV A/P Assessment and Plan Patient is a 57 yo female who presented for reported overdose of Klonopin and admitted under [place] Act to inpatient psychiatric care. Medical team consulted for management of her several chronic medical problems. Crohn's disease: symptomatic -Continue home meds and reassess sx H/o SVTs: normal rate on exam, EKG shows no arrhythmia -continue atenolol COPD, HLD, hypothyroid, GERD, migraines -Continue home meds Daniel Espinoza M3 Sep 27, 2017 11:54
[2017-09-27] MEDS: DICYCLOMINE HCL 20 MG TAB PO SCH ×2 (13:00→18:12)
[2017-09-27 13:11] LABS: ANION GAP 7 MEQ/L (5-15); BICARBONATE 26.6 MEQ/L (21.0-32.0); BLOOD UREA NITROGEN 11 MG/DL (7-18); CHLORIDE 110 MEQ/L (98-107); GLOMERULAR FILTRATION RATE 64 ML/MIN (>89); POTASSIUM 3.7 MEQ/L (3.5-5.1); SODIUM (NA) 144 MEQ/L (136-145)
[2017-09-27 13:21] LABS: FREE T4 0.76 NG/DL (0.76-1.46); HDL CHOLESTEROL 54.5 MG/DL (40.0-60.0); LDL CHOLESTEROL 177 MG/DL (0-99)
--- NOTE | 2017-09-27 13:24 | HHI.HP ---
Provisional Diagnosis Admission Date Sep 26, 2017 at 21:52 [place] I. Major depression, recurrent Certification of Person's Competence To Provide Express and Informed Consent I have personally examined Chastity Pratt , a person being served at [facility] on, Sep 27, 2017 13:15. Express and informed consent means consent voluntarily given in writing, by a competent person, after sufficient explanation and disclosure of the subject matter involved to enable the person to make a knowing and willful decision without any element of force, fraud, deceit, duress, or other form of constraint or coercion. This person is 18 years of age or older, is not now known to be incompetent to consent to treatment with a guardian advocate, and does not have a health care surrogate or proxy currently making medical treatment decisions. I have found this person to be one of the following: [x] Competent to provide express and informed consent, as defined above, for voluntary admission to this facility and is competent to provide express and informed consent for treatment. He/she has the consistent capacity to make well reasoned, willful, and knowing decisions concerning his or her medical or mental health treatment. The person fully and consistently understands the purpose of the admission for examination/placement and is fully capable of personally exercising all rights [place] Incompetent to provide express and informed consent to voluntary admission, and this is incompetent to provide express and informed consent to treatment. The person must be transferred to involuntary status and a petition for a guardian advocate filed with the Circuit Court. [] Refusing to provide express and informed consent to voluntary admission but is competent to provide express and informed consent for treatment. The person must be discharged or transferred to involuntary status. Form shall be completed within 24 hours of a person's arrival at the receiving facility and filed in the clinical record of each person: 1. Admitted on a voluntary basis 2. Permitted to provide express and informed consent to his/her own treatment 3. Allowed to transfer from involuntary to voluntary status 4. Prior to permitting a person to consent to his or her own treatment after having been previously found incompetent to consent to treatment. History of Present Illness Capacity: Has Capacity HPI 57-year-old female admitted under a [place] act for suicidal behavior/attempt. Patient apparently overdosed on her own Klonopin. She states she took unknown amounts of multiple other medications that she has prescribed for her. She does admit this was a suicide attempt and states "it sucks". Patient lives alone and apparently has little or no contact with her son, who lives locally. This is apparently his choice. Patient has a father who is approximately 100 years of age and lives in [place]. She has multiple medical issues and finds it difficult to live alone with little or no social contacts. She describes a several month history of symptoms of major depression , including depressed mood, anhedonia, diminished energy, feelings of hopelessness and helplessness, suicidal ideation, anxiety, sleep and appetite disturbance, diminished self-esteem, etc. Her toxicology screen was positive for benzodiazepines but no illicit drugs. Review of Systems Psychiatric: COMPLAINS OF: Depression Except as stated in HPI: all other systems reviewed are Neg Past Psych History Psychological trauma history Patient has been treated with anti-anxiety and antidepressant medications in the past. Violence risk - others (6 mos) Minimal Violence risk - self (6 mos) High Substance Abuse History Drugs/Alcohol past 12 months Denied Past Family Social History Coded Allergies: iodine (Unverified Allergy, Intermediate, blisters, 06/09/17) potassium iodide (Unverified Allergy, Intermediate, blisters, 06/09/17) povidone-iodine (Unverified Allergy, Intermediate, blisters, 06/09/17) sodium iodide (Unverified Allergy, Intermediate, blisters, 06/09/17) sodium iodide (Unverified Allergy, Intermediate, blisters, 06/09/17) codeine (Unverified Allergy, Mild, EMESIS, 06/09/17) cephalexin (Unverified Adverse Reaction, Intermediate, EMESIS, 06/09/17) caffeine (Unverified Adverse Reaction, Mild, HEADACHE, 06/09/17) cefepime (Unverified Adverse Reaction, Mild, EMESIS, 06/09/17) ceftaroline fosamil (Unverified Adverse Reaction, Mild, EMESIS, 06/09/17) morphine (Unverified Adverse Reaction, Mild, ITCHING, 06/09/17) aripiprazole (Unverified Adverse Reaction, Unknown, "TOO MANY SIDE EFFECTS ", 06/09/17) Uncoded Allergies: ASPERTAME (Adverse Reaction, Mild, EMESIS, 11/06/08) Active Scripts Sumatriptan (Sumatriptan) 50 Mg Tab, 50 MG PO ONCE Y for MIGRAINE HEADACHE, #15 TAB 0 Refills If a satisfactory response has not been obtained at 2 hours, a second dose may be administered Prov:Bobby Vázquez MD 12/30/16 Reported Medications Levothyroxine (Levothyroxine) 25 Mcg Tab, 25 MCG PO DAILY for Thyroid, #30 TAB 0 Refills 09/26/17 Sertraline (Sertraline) 100 Mg Tab, 150 MG PO DAILY, #30 TAB 0 Refills 09/26/17 Dicyclomine (Dicyclomine) 20 Mg Tab, 20 MG PO TID for Bowel Management, #90 TAB 0 Refills 09/26/17 Meloxicam (Mobic) 7.5 Mg Tab, 7.5 MG PO DAILY for Pain, TAB 0 Refills 09/26/17 Albuterol 18 GM Inh (Ventolin Hfa 18 GM Inh) 90 Mcg/Act Aer, 1-2 PUFF INH Q4-6H Y for SHORTNESS OF BREATH, #1 INHALER 0 Refills 12/30/16 Budesonide-Formoterol Inh (Symbicort Inh) 160-4.5 Mcg/Act Aero, 2 PUFF INH DAILY , #1 INHALER 0 Refills 12/30/16 Folic Acid (Folic Acid) 800 Mcg Cap, 800 MCG PO DAILY, CAP 12/30/16 Cyanocobalamin (Vitamin B-12) 5,000 Mcg Tab, 5000 MCG PO DAILY 12/30/16 Omeprazole (Omeprazole) 20 Mg Tab, 40 MG PO BID, #30 TAB 0 Refills 12/30/16 Clonazepam (Klonopin) 2 Mg Tab, 2 MG PO HS, #60 TAB 0 Refills 12/30/16 Atenolol (Tenormin) 50 Mg Tab, 50 MG PO DAILY for Blood Pressure Management, # 30 TAB 0 Refills 12/30/16 Amitriptyline (Amitriptyline) 50 Mg Tab, 50 MG PO HS for Control Depression, # 30 TAB 0 Refills 12/30/16 Quetiapine (Seroquel) 300 Mg Tab, 300 MG PO TID, #60 TAB 0 Refills 12/30/16 Ropinirole (Requip) 2 Mg Tab, 2 MG PO HS Y for RESTLESS LEGS, #30 TAB 0 Refills 12/30/16 Topiramate (Topamax) 50 Mg Tab, 50 MG PO BID for Control Seizures, #60 TAB 0 Refills 12/30/16 Cholestyramine (Cholestyramine) 4 Gm/Dose Powd, 4 GM PO BID for Dyslipidemia, # 1 CAN 0 Refills 1 level scoopful of powder (contains 4 grams of cholestyramine) 12/30/16 Discontinued Reported Medications Lamotrigine (Lamotrigine) 25 Mg Chew, 25 MG CHEW BID for Control Seizures, #60 TAB 0 Refills 09/26/17 Albuterol Neb (Albuterol Neb) Unknown Strength Neb, 1 AMPULE NEB Q6HR Y for SHORTNESS OF BREATH, #1 NEBULE 0 Refills 12/30/16 Ferrous Sulfate (Ferrous Sulfate) 325 Mg Tab, 325 MG PO DAILY for Nutritional Supplement, #30 TAB 0 Refills 12/30/16 Cholecalciferol (Vitamin D3) 5,000 Unit Tab, 5000 UNITS PO DAILY for Nutritional Supplement, #1 BOTTLE 0 Refills 12/30/16 Ascorbic Acid (Vitamin C) 500 Mg Tab, 500 MG PO DAILY for Nutritional Supplement , TAB 0 Refills 12/30/16 Dicyclomine (Bentyl) 20 Mg Tab, 20 MG PO TID Y for Bowel Management, TAB 0 Refills 12/30/16 Omeprazole (Omeprazole) 20 Mg Tab, 20 MG PO Q12HR, #30 TAB 0 Refills 12/30/[address] (Budesonide DR) 3 Mg Capdr, 3 MG PO DAILY, #60 CAP 0 Refills 12/30/16 Discontinued Scripts Ondansetron Odt (Zofran Odt) 4 Mg Tab, 4 MG SL Q8HR Y for Nausea/Vomiting, #15 TAB 0 Refills Prov:Bobby Vázquez MD 12/30/16 Okmanmgpat-Zugjsgcovhwek-Egjwthtc (Fioricet) 50-300-40 Mg Cap, 1 CAP PO Q4H Y for HEADACHE, #15 CAP 0 Refills Prov:Bobby Vázquez MD 12/30/16 Current Medications Medications (Trade) Dose Ordered Sig/Clarita Route Start Time Stop Time Status Last Admin (NS Flush) 2 ml UNSCH PRN IVF 09/26/17 05:30 (Ativan) 1 mg Q6H PRN PO 09/26/17 22:15 09/26/17 23:37 (Ativan Inj) 1 mg Q6H PRN IM 09/26/17 22:15 (Atarax) 50 mg Q6H PRN PO 09/26/17 22:15 (Benadryl) 50 mg Q6H PRN PO 09/26/17 22:15 (Benadryl Inj) 50 mg Q6H PRN IM 09/26/17 22:15 (Cogentin) 1 mg Q12H PRN PO 09/26/17 22:15 (Cogentin Inj) 1 mg Q12H PRN IM 09/26/17 22:15 (Benadryl) 50 mg HS PRN PO 09/26/17 22:15 (Benadryl Inj) 50 mg HS PRN IM 09/26/17 22:15 (Desyrel) 50 mg HS PRN PO 09/26/17 22:15 Future Hold (Tylenol) 650 mg Q4H PRN PO 09/26/17 22:15 (Milk Of Magnesia Liq) 30 ml DAILY PRN PO 09/26/17 22:15 (Mag-Al Plus Susp Liq) 30 ml Q6H PRN PO 09/26/17 22:15 (Habitrol 21 Mg Patch.24 Hr) 1 patch DAILY T-DERMAL 09/27/17 09:00 Miscellaneous Information 1 HS T-DERMAL 09/27/17 21:00 (Requip) 2 mg HS PRN PO 09/26/17 22:15 09/27/17 04:35 (KlonoPIN) 2 mg HS PO 09/27/17 21:00 (Vitamin B12) 5,000 mcg DAILY PO 09/27/17 09:00 09/27/17 08:41 (Imitrex) 50 mg DAILY PRN PO 09/26/17 22:30 09/27/17 04:35 (Proair Hfa Inh) 1 puff Q4HR PRN INH 09/27/17 11:30 (Symbicort 160-4.5 Mcg Inh) 2 puff DAILY INH 09/28/17 09:00 (Questran 4 Gm Pkt) 4 gm BID PO 09/27/17 21:00 (Bentyl) 20 mg TID PO 09/27/17 13:00 (Folate) 1 mg DAILY PO 09/28/17 09:00 (Synthroid) 25 mcg DAILY@0600 PO 09/28/17 06:00 (Topamax) 50 mg BID PO 09/27/17 21:00 (Protonix) 40 mg BID PO 09/27/17 21:00 Family Psych History Positive for mood and anxiety disorders Social History Currently unemployed. Does not abuse alcohol or drugs. Multiple health issues. Minimal family support. Patient's Strengths (min. 2) Verbal and has access to healthcare. Physical Exam GENERAL: SKIN: Warm and dry. HEAD: Normocephalic. EYES: No scleral icterus. No injection or drainage. NECK: Supple, trachea midline. No JVD or lymphadenopathy. CARDIOVASCULAR: Regular rate and rhythm without murmurs, gallops, or rubs. RESPIRATORY: Breath sounds equal bilaterally. No accessory muscle use. GASTROINTESTINAL: Abdomen soft, non-tender, nondistended. MUSCULOSKELETAL: No cyanosis, or edema. BACK: Nontender without obvious deformity. No CVA tenderness. Vital Signs Vital Signs Date Time Temp Pulse Resp B/P (MAP) Pulse Ox O2 Delivery O2 Flow Rate FiO2 09/27/17 06:04 99.6 83 17 146/65 (92) 99 09/26/17 14:00 Room Air Lab Results Test 09/27/17 12:24 Blood Urea Nitrogen 11 MG/DL Creatinine 0.90 MG/DL Random Glucose 109 MG/DL Calcium Level 9.1 MG/DL Sodium Level 144 MEQ/L Potassium Level 3.7 MEQ/L Chloride Level 110 MEQ/L Carbon Dioxide Level 26.6 MEQ/L Anion Gap 7 MEQ/L Estimat Glomerular Filtration Rate 64 ML/MIN Cholesterol Level 290 MG/DL Mental Status Examination Appearance: Appropriate Consciousness: Alert Orientation: x4 Motor Activity: Normal gait Speech: Unremarkable Language: Adequate Fund of Knowledge: Adequate Attention and Concentration: Adequate Memory: Unremarkable Mood: Sad Affect: Sad Thought Process & Associations: Intact Thought Content: Appropriate Hallucination Type: None Delusion Type: None Suicidal Ideation: Yes Suicidal Plan: Yes Suicidal Intention: Yes Homicidal Ideation: No Homicidal Plan: No Homicidal Intention: No Insight: Fair Judgment: Impulsive Assessment & Plan Problem List: (1) Recurrent major depression-severe ICD Codes: F33.2 - Major depressive disorder, recurrent severe without psychotic features Assessment & Plan Estimated LOS: days. Patient made a serious suicide attempt by admitted ingestion of Klonopin and other medications. She has a multiple month history of depressive symptoms and is isolated and suffering from multiple medical issues. She is felt to be at high risk for self-harm and therefore being admitted for further evaluation and treatment. This physician has ordered a thyroid-stimulating hormone level, vitamin B-12 level and vitamin D level to determine if deficiencies in these areas are causing or contributing to her depression. Additionally, because the patient has a history of cardiovascular disease, we are ordering a hospitalist consult, lipid panel, hemoglobin A1c and serial EKGs. This is to ensure that any psychotropic medicines being prescribed, do not adversely affect her heart function. (Patient noted to be prescribed Elavil in the past.) This physician spoke with the emergency department nurse regarding the patient's mood and behavior. Case management will also be involved to assist with information gathering and appropriate disposition planning. This physician does not feel it appropriate to entirely discontinue the patient's benzodiazepines as she may go through dangerous withdrawal. Hitesh Curran MD Sep 27, 2017 13:23
--- NOTE | 2017-09-27 13:52 | PD.CONS ---
HPI Service [facility] Consult Requested By Dr. Sands Reason for Consult Medical management Primary Care Physician Freddy Overton MD Diagnoses: History of Present Illness 57-year-old female with a medical history significant for Crohn's disease, COPD , cardiac arrhythmia, GERD who presented to the hospital after she allegedly took Klonopin, atenolol in an attempt for overdose. Patient reports an out of body experience. Currently she reports she is feeling well except for her usual symptoms of Crohn's disease. She has not been restarted on dicyclomine and cholestyramine. She has no complaints otherwise. Review of Systems Psychiatric: COMPLAINS OF: Suicidal Ideation Except as stated in HPI: all other systems reviewed are Neg Past Family Social History Allergies: Coded Allergies: iodine (Unverified Allergy, Intermediate, blisters, 06/09/17) potassium iodide (Unverified Allergy, Intermediate, blisters, 06/09/17) povidone-iodine (Unverified Allergy, Intermediate, blisters, 06/09/17) sodium iodide (Unverified Allergy, Intermediate, blisters, 06/09/17) sodium iodide (Unverified Allergy, Intermediate, blisters, 06/09/17) codeine (Unverified Allergy, Mild, EMESIS, 06/09/17) cephalexin (Unverified Adverse Reaction, Intermediate, EMESIS, 06/09/17) caffeine (Unverified Adverse Reaction, Mild, HEADACHE, 06/09/17) cefepime (Unverified Adverse Reaction, Mild, EMESIS, 06/09/17) ceftaroline fosamil (Unverified Adverse Reaction, Mild, EMESIS, 06/09/17) morphine (Unverified Adverse Reaction, Mild, ITCHING, 06/09/17) aripiprazole (Unverified Adverse Reaction, Unknown, "TOO MANY SIDE EFFECTS ", 06/09/17) Uncoded Allergies: ASPERTAME (Adverse Reaction, Mild, EMESIS, 11/06/08) Past Medical History Crohn's disease, COPD, cardiac arrhythmia, GERD Past Surgical History Cholecystectomy Breast implant and removal. Reported Medications Reported Meds & Active Scripts Active Sumatriptan (Sumatriptan Succinate) 50 Mg Tab 50 Mg PO ONCE PRN If a satisfactory response has not been obtained at 2 hours, a second dose may be administered Reported Levothyroxine (Levothyroxine Sodium) 25 Mcg Tab 25 Mcg PO DAILY Sertraline (Sertraline HCl) 100 Mg Tab 150 Mg PO DAILY Dicyclomine (Dicyclomine HCl) 20 Mg Tab 20 Mg PO TID Mobic (Meloxicam) 7.5 Mg Tab 7.5 Mg PO DAILY Ventolin Hfa 18 GM Inh (Albuterol Sulfate) 90 Mcg/Act Aer 1-2 Puff INH Q4-6H PRN Symbicort Inh (Budesonide/Formoterol Fumarate) 160-4.5 Mcg/Act Aero 2 Puff INH DAILY Folic Acid 800 Mcg Cap 800 Mcg PO DAILY Vitamin B-12 (Cyanocobalamin) 5,000 Mcg Tab 5,000 Mcg PO DAILY Omeprazole 20 Mg Tab 40 Mg PO BID Klonopin (Clonazepam) 2 Mg Tab 2 Mg PO HS Tenormin (Atenolol) 50 Mg Tab 50 Mg PO DAILY Amitriptyline (Amitriptyline HCl) 50 Mg Tab 50 Mg PO HS Seroquel (Quetiapine Fumarate) 300 Mg Tab 300 Mg PO TID Requip (Ropinirole HCl) 2 Mg Tab 2 Mg PO HS PRN Topamax (Topiramate) 50 Mg Tab 50 Mg PO BID Cholestyramine 4 Gm/Dose Powd 4 Gm PO BID 1 level scoopful of powder (contains 4 grams of cholestyramine) Family History Reviewed and found to be noncontributory. Social History Denies tobacco, or alcohol use. Denies illicit drug use. Physical Exam Vital Signs Vital Signs Date Time Temp Pulse Resp B/P (MAP) Pulse Ox O2 Delivery O2 Flow Rate FiO2 09/27/17 06:04 99.6 83 17 146/65 (92) 99 09/26/17 22:20 97.3 79 18 168/77 (107) 97 09/26/17 22:14 85 18 145/70 (95) 96 09/26/17 22:07 09/26/17 14:00 97.9 79 17 137/66 (89) 98 Room Air Physical Exam GENERAL: This is a well-nourished, well-developed patient, in no apparent distress. SKIN: No rashes, ecchymoses or lesions. Cool and dry. HEAD: Atraumatic. Normocephalic. No temporal or scalp tenderness. EYES: Pupils equal round and reactive. Extraocular motions intact. No scleral icterus. No injection or drainage. ENT: Nose without bleeding, purulent drainage or septal hematoma. Throat without erythema, tonsillar hypertrophy or exudate. Uvula midline. Airway patent. NECK: Trachea midline. No JVD or lymphadenopathy. Supple, nontender, no meningeal signs. CARDIOVASCULAR: Regular rate and rhythm without murmurs, gallops, or rubs. RESPIRATORY: Clear to auscultation. Breath sounds equal bilaterally. No wheezes , rales, or rhonchi. GASTROINTESTINAL: Abdomen soft, non-tender, nondistended. No hepato-splenomegaly , or palpable masses. No guarding. MUSCULOSKELETAL: Extremities without clubbing, cyanosis, or edema. No joint tenderness, effusion, or edema noted. No calf tenderness. Negative Homans sign bilaterally. NEUROLOGICAL: Awake and alert. Cranial nerves II through XII intact. Motor and sensory grossly within normal limits. Five out of 5 muscle strength in all muscle groups. Normal speech. Laboratory Laboratory Tests Test 09/27/17 12:24 Blood Urea Nitrogen 11 Creatinine 0.90 Random Glucose 109 Calcium Level 9.1 Sodium Level 144 Potassium Level 3.7 Chloride Level 110 Carbon Dioxide Level 26.6 Anion Gap 7 Estimat Glomerular Filtration Rate 64 Triglycerides Level 291 Cholesterol Level 290 LDL Cholesterol 177 HDL Cholesterol 54.5 Cholesterol/HDL Ratio 5.32 Free Thyroxine 0.76 Thyroid Stimulating Hormone 3rd Gen 1.300 Result Diagram: 09/26/17 0530 09/27/17 1224 Assessment and Plan Assessment and Plan 57-year-old female admitted to the psychiatric unit for reported overdose on Klonopin and other medications. It does not appear she took a lot of medications. She is currently asymptomatic and looks well on exam. We'll resume her chronic home medications for Crohn's disease, COPD, hypothyroidism, and COPD. Further management regarding reported overdose per psychiatry. - Patient is medically stable. We'll sign off. Please call or reconsult with questions. Cherie Hay MD Sep 27, 2017 13:52
[2017-09-27] MEDS: LORazepam 1 MG TAB PO PRN (14:56)
[2017-09-27] MEDS ORDERED: PADIMATE (CHAPSTICK) 4.5 GM TUBE TOPICAL PRN (15:00)
[2017-09-27 18:00] VITALS: BP 114/56; PULSE 82; RESP 18; TEMP 98.2; O2SAT 99
[2017-09-27] MEDS ORDERED: REMOVE OLD NICOTINE PATCH T-DERMAL SCH (21:00)
[2017-09-27] MEDS ORDERED: clonazePAM 1 MG TAB PO SCH (21:00)
[2017-09-27] MEDS: PANTOPRAZOLE SOD 40 MG DELAYED RELEASE TAB PO SCH (21:08)
[2017-09-27] MEDS: TOPIRAMATE 25 MG TAB PO SCH (21:09)
[2017-09-27] MEDS: CHOLESTYRAMINE 4 GM PACKET PO SCH (21:10)
--- NOTE | 2017-09-27 22:09 | EKG ---
Date Performed: 09/27/2017 Time Performed: 08:53:47 PTAGE: 57 years EKG: Sinus rhythm LOW QRS VOLTAGE IN PRECORDIAL LEADS NONSPECIFIC ST & T-WAVE ABNORMALITY BORDERLINE ECG PREVIOUS TRACING : 09/26/2017 05.28 Compared to prior tracing no significant change DOCTOR: Martinez Styles Interpretating Date/Time 09/27/2017 22:08:22
--- NOTE | 2017-09-27 23:05 | EKG ---
Date Performed: 09/26/2017 Time Performed: 05:28:23 PTAGE: 57 years EKG: Sinus rhythm LOW QRS VOLTAGE IN PRECORDIAL LEADS PATTERN CONSISTENT WITH PULMONARY DISEASE NONSPECIFIC ST & T-WAV E ABNORMALITY ABNORMAL ECG PREVIOUS TRACING : 08/07/2010 05.50 Compared to prior tracing no significant change DOCTOR: Martinez Styles Interpretating Date/Time 09/27/2017 23:03:16
[2017-09-28] MEDS: LORazepam 1 MG TAB PO PRN (02:02)
[2017-09-28] MEDS ORDERED: LEVOTHYROXINE SODIUM 25 MCG TAB PO SCH (06:00)
[2017-09-28 06:23] VITALS: BP 109/58; PULSE 67; RESP 17; TEMP 98; O2SAT 97
[2017-09-28] MEDS: CYANOCOBALAMIN 1,000 MCG TAB PO SCH (08:49)
[2017-09-28] MEDS: DICYCLOMINE HCL 20 MG TAB PO SCH ×2 (08:50→14:16)
[2017-09-28] MEDS: TOPIRAMATE 25 MG TAB PO SCH (08:50)
[2017-09-28] MEDS: PANTOPRAZOLE SOD 40 MG DELAYED RELEASE TAB PO SCH (08:50)
[2017-09-28 08:51] LABS: HDL CHOLESTEROL 52.9 MG/DL (40.0-60.0); LDL CHOLESTEROL 153 MG/DL (0-99)
[2017-09-28] MEDS: CHOLESTYRAMINE 4 GM PACKET PO SCH (08:51)
[2017-09-28] MEDS: NICOTINE 21 MG/24 HR PATCH T-DERMAL SCH (08:59)
[2017-09-28] MEDS ORDERED: ATENOLOL 50 MG TAB PO SCH (09:00)
[2017-09-28] MEDS ORDERED: FOLIC ACID 1 MG TAB PO SCH (09:00)
[2017-09-28] MEDS ORDERED: BUDESONIDE-FORMOTEROL 160/4.5 MCG INHALER INH SCH (09:00)
[2017-09-28 09:21] LABS: HEMOGLOBIN A1a 0.8 %; HEMOGLOBIN A1b 2.1 %; HEMOGLOBIN Ao 86.4 %; HEMOGLOBIN LA1C 2.1 %; HEMOGLOBIN P3 3.4 %
[2017-09-28 09:31] LABS: HEMOGLOBIN A1a 0.8 %; HEMOGLOBIN A1b 2.1 %; HEMOGLOBIN Ao 86.4 %; HEMOGLOBIN LA1C 2.2 %; HEMOGLOBIN P3 3.4 %
--- NOTE | 2017-09-28 14:29 | PD.TTN ---
Patient Problems 1. Discharge planning 2. Medication compliance 3. Knowledge deficit 4. Lack of coping skills Progress Toward Goals Provider Present: Dr. Niraj Sands Provider Input: Dr. Sands's treatment team met to discuss patient's treatment plan, discharge plan, and medication. Patient is new, will assess Nurse(s) Input: Patient 's nurse Jaron reports patient is intrusive, attention seeking, medication complaint Psychiatric Counselors Present: BJORN OlivaresMaddie Psych Therapist Input: Patient is cooperative, pleasant, childlike, intrusive, somtatic, affect blunted. Patient's speech is clear, organized and appropriate. Patient made good eye contact. Patient denies sucidial and homicidal ideation. Patient does not present internally stimulated or with any delusional content. Patient will return home once discharged and follow up with private psychiatrist. Group Spec/RT/OT/RAMOS Present: RICHARD Guzman Group Spec/RT/OT/RAMOS Input: Patient is new. Haven BandaMaddie Sep 28, 2017 14:29
--- NOTE | 2017-09-28 14:53 | HHI.DS ---
Psychiatry Discharge Summary Inpatient Psychiatric care?: Yes Advance Directive: Yes Mental Health AdvanceDirective: No Health Care Proxy: No Admission Admission Date Sep 26, 2017 at 21:52 Admission Diagnosis: (1) Recurrent major depression-severe ICD Code: F33.2 - Major depressive disorder, recurrent severe without psychotic features Brief History 57-year-old female admitted under a Tinsley act for suicidal behavior/attempt. Patient apparently overdosed on her own Klonopin. She states she took unknown amounts of multiple other medications that she has prescribed for her. She does admit this was a suicide attempt and states "it sucks". Patient lives alone and apparently has little or no contact with her son, who lives locally. This is apparently his choice. Patient has a father who is approximately 100 years of age and lives in [place]. She has multiple medical issues and finds it difficult to live alone with little or no social contacts. She describes a several month history of symptoms of major depression , including depressed mood, anhedonia, diminished energy, feelings of hopelessness and helplessness, suicidal ideation, anxiety, sleep and appetite disturbance, diminished self-esteem, etc. Her toxicology screen was positive for benzodiazepines but no illicit drugs. Tobacco Use In Past 30 Days: No Tobacco Past 30 Days Alcohol Use: Never Hospital Course Patient seen in her room with nurse Jaron patient calm cooperative alert oriented in no acute distress. Compliant with the medication. Though staff is noticed some mild drug-seeking primarily for benzodiazepines. However she did not exhibit that behavior with me. She states she was upset by not being able to see her estranged son over the s. She said she took the Klonopin because she wanted to go to sleep. She states she would not take the suicide pill if offered to her. She does see a nurse practitioner, Deborah Caballero, in the community has been compliant with her medications and her appointments. As the performance of her 10/07/17. Patient is able contracted to no harm. To take medication as prescribed only. And to follow-up with explanation. Thus at this time for patient no longer meets Tinsley act criteria will lift Tinsley act allow patient to be discharged to herself. No Rx by me. May continue her own home medications though strong recommendation to discontinue all benzodiazepines. Thus patient will be discharged today. Results Blood Pressure 109 / 58 Vital Signs Date Time Temp Pulse Resp B/P (MAP) Pulse Ox O2 Delivery O2 Flow Rate FiO2 12/4/17 06:23 98.0 67 17 109/58 (75) 97 09/26/17 14:00 Room Air Laboratory Tests Test 09/26/17 05:30 09/26/17 06:15 09/27/17 12:24 09/28/17 07:11 Activated Partial Thromboplast Time 23.5 SEC (24.3-30.1) Creatinine 1.14 MG/DL (0.50-1.00) Potassium Level 3.2 MEQ/L (3.5-5.1) Chloride Level 108 MEQ/L (98-107) 110 MEQ/L (98-107) Estimat Glomerular Filtration Rate 49 ML/MIN (>89) 64 ML/MIN (>89) Salicylates Level LESS THAN 1.7 MG/DL Acetaminophen Level LESS THAN 2.0 MCG/ML Urine Benzodiazepines Screen POS (NEG) Random Glucose 109 MG/DL (74-106) Triglycerides Level 291 MG/DL (42-150) 368 MG/DL (42-150) Cholesterol Level 290 MG/DL (120-200) 279 MG/DL (120-200) LDL Cholesterol 177 MG/DL (0-99) 153 MG/DL (0-99) 25-Hydroxy Vitamin D Total 20.0 ng/ML (30-100) Laboratory Results Test 09/28/17 07:11 Cholesterol Level 279 MG/DL (120-200) HDL Cholesterol 52.9 MG/DL (40.0-60.0) Hemoglobin A1c 4.8 % (4.3-6.0) LDL Cholesterol 153 MG/DL (0-99) Triglycerides Level 368 MG/DL (42-150) Summary of Procedures None done Imaging Last Impressions Head CT 09/26/17 0901 Signed Impressions: Service Date/Time: Tuesday, September 26, 2017 09:14 - CONCLUSION: No acute intracranial disease. Carlton Martin MD Pending results at discharge: No Medications # of Antipsychotic meds at D/C: 0 Approp Antipsych med options 1 - Minimum of three failed multiple trials of monotherapy. 2 - Documented plan to taper to monotherapy due to previous use of multiple meds OR cross-taper in progress at D/C. 3 - Documentation of augmentation of Clozapine. 4 - Justification other than those listed in allowable values 1-3, document here : Discharge Discharge Date: Sep 28, 2017 Discharge Diagnosis: (1) Recurrent major depression-severe Diagnosis: Principal ICD Code: F33.2 - Major depressive disorder, recurrent severe without psychotic features Status: Chronic Pt Condition on Discharge: Stable Discharge Disposition: Discharge Home Discharge Instructions Diet Instructions: As Tolerated, No Restrictions Activities you can perform: Regular-No Restrictions Scheduled Appointment: Private Psychiatrist (follow-up Kathy Gramajo 10/07 or sooner as needed) Discharge Time > 30 minutes Mental Status Examination Appearance: Appropriate Consciousness: Alert Orientation: x4 Motor Activity: Normal gait Speech: Unremarkable Language: Adequate Fund of Knowledge: Adequate Attention and Concentration: Adequate Memory: Unremarkable Mood: Sad Affect: Sad Thought Process & Associations: Intact Thought Content: Appropriate Hallucination Type: None Delusion Type: None Suicidal Ideation: Yes Suicidal Plan: Yes Suicidal Intention: Yes Homicidal Ideation: No Homicidal Plan: No Homicidal Intention: No Insight: Fair Judgment: Impulsive Discharge/Advance Care Plan Health Problems: (1) Recurrent major depression-severe Goals to promote your health * To prevent worsening of your condition and complications * To maintain your health at the optimal level Directions to meet your goals Take your medications as prescribed Follow your dietary instruction Follow activity as directed Keep your appointments as scheduled Take your immunizations and boosters as scheduled If your symptoms worsen call your PCP, if no PCP go to Urgent Care Center or Emergency Room For 18/05 questions related to your inpatient stay or results of tests pending at discharge, please contact Dr. Alcon Sands at Smoking is Dangerous to Your Health. Avoid second hand smoking Problem Qualifiers (1) Recurrent major depression-severe: Qualified Codes: F33.2 - Major depressive disorder, recurrent severe without psychotic features Alcon Sands MD Sep 28, 2017 14:53
--- NOTE | 2017-09-28 19:22 | EKG ---
Date Performed: 09/28/2017 Time Performed: 07:43:38 PTAGE: 57 years EKG: Sinus rhythm ST DEVIATION AND MODERATE T-WAVE ABNORMALITY, CONSIDER ANTEROLATERAL ISCHEMIA Since previous tracing , no significant change noted ABNORMAL ECG PREVIOUS TRACING : 09/27/2017 08.53.47 DOCTOR: Rufina Iraheta Interpretating Date/Time 09/28/2017 19:21:45
== END 2017-09-28 16:05 | disposition home or self-care (01) | DRG 885 ==
LOC: NEPC 05:17 → NEDA 21:52 → H260 22:21
PROVIDERS: ADMIT Psychiatry & Neurology Psychiatry; ATTEND Psychiatry & Neurology Psychiatry
DX: F33.2 Major depressive disorder, recurrent severe without psychotic features (principal); K50.911 Crohn's disease, unspecified, with rectal bleeding; R45.851 Suicidal ideations; J44.9 Chronic obstructive pulmonary disease, unspecified; E03.9 Hypothyroidism, unspecified; T42.4X1A Poisoning by benzodiazepines, accidental (unintentional), initial encounter; T42.4X5A Adverse effect of benzodiazepines, initial encounter; K21.9 Gastro-esophageal reflux disease without esophagitis; E78.5 Hyperlipidemia, unspecified; G43.909 Migraine, unspecified, not intractable, without status migrainosus; N18.9 Chronic kidney disease, unspecified; Z76.5 Malingerer [conscious simulation]; Z80.0 Family history of malignant neoplasm of digestive organs; Z80.3 Family history of malignant neoplasm of breast; Z88.9 Allergy status to unspecified drugs, medicaments and biological substances
CPT/HCPCS: 70450; 80048; 80053; 80061; 80307; 82306; 82607; 83036; 84439; 84443; 85025; 85610; 85730; 93005; 96360; J7030